=== PATIENT | male | born 1975 | race Caucasian/White ===

== ENCOUNTER 2019-06-06 15:34 | Observation (INO) | payer BC ==
[~2019-06-06] VITALS: Ht 193 cm; Wt 123.5 kg
[~2019-06-06 15:34] MED LIST: ALEVE 220MG220 MG PO
[2019-06-06 15:51] VITALS: BP 141/87; PULSE 63; TEMP 97.9
--- NOTE | 2019-06-06 16:12 | NUR ---
Patient to room via wheelchair by admissions. Rates pain 2-3 in left lower back that is dull and constant. in room.
[2019-06-06 16:50] VITALS: BP 138/72; PULSE 54
--- NOTE | 2019-06-06 16:56 | NUR ---
Patient having burning sensation in right shoulder area since the [employer] HOME HEALTH ATTENDANT and IV fluids initiated. Looked at right shoudler area and veins are more prominent when compared to the left shoulder area. Paused IV fluids and HOME HEALTH ATTENDANT. Asked retail shift supervisor MCKINLEY Calderon, and MCKINLYE Romano, to come in room to evaluate patient as well. Paused HOME HEALTH ATTENDANT and restarted fluids. Patient still feels the burning some in the right shoulder but not as bad as what it was. IV fluids continue to infuse. Patient says that he is not having the burning in that area any longer. Pharmacy also notified.
--- NOTE | 2019-06-06 17:10 | NUR ---
Morphine MAGNET PLACER dc'd at this time. Will add reaction to patient allergy list. MCKINLEY Cervantes, spoke with Dr. Kennedy and new orders received. Patient and his updated. Veins not as prominent in right shoudler area. Patient declines any pain or burning in the right shoulder any longer. Water provided. Patient denies further needs.
[2019-06-06 17:50] LABS: CALCIUM 8.8 mg/dL (8.4-10.2); CREATININE, serum 1.08 (0.66-1.25); POTASSIUM 4.2 mmol/L (3.4-5.0)
--- NOTE | 2019-06-06 18:06 | NUR ---
Evaluated right shoulder. No more redness noted. Veins no longer prominent. Patient says that he is not having any pain or burning in the shoulder any longer. Says that his pain is still tolerable at this time. Denies needs.
[2019-06-06 19:36] VITALS: BP 129/71; PULSE 79; TEMP 98
[2019-06-06 23:37] VITALS: BP 122/60; PULSE 68; TEMP 98.2
[2019-06-07] VITALS (9 sets, daily range): BP systolic 127–169; BP diastolic 59–84; PULSE 51–62; TEMP 97.8–98.2
--- NOTE | 2019-06-07 04:14 | NUR ---
Patient has rested well throughout the night. Has requested pain medication x2 so far this shift. Pain well managed with current regimen. Surgery scheduled for 0800. Patient ambulates to bathroom independently. Urine is strained, no stone present. Will continue to monitor.
--- NOTE | 2019-06-07 07:30 | NUR ---
Patient alert and oriented, answers questions appropriately. See assessment. No c/o flank or back pain. No c/o urinary burning, frequency or hesitancy. To surgery at this time.
--- NOTE | 2019-06-07 09:40 | NUR ---
Patient returns from cysto, assessment unchanged.
--- NOTE | 2019-06-07 13:15 | NUR ---
Discharge instructions reviewed with patient and spouse, verbalized understanding. Discharged ambulatory to auto/home with spouse at 1115.
== END 2019-06-07 13:15 | disposition home or self-care (01) ==
LOC: SURG 15:34
PROVIDERS: ADMIT Urology
DX: N20.2 Calculus of kidney with calculus of ureter (principal); F17.220 Nicotine dependence, chewing tobacco, uncomplicated; Z88.1 Allergy status to other antibiotic agents; Z88.2 Allergy status to sulfonamides; Z80.8 Family history of malignant neoplasm of other organs or systems; Z88.5 Allergy status to narcotic agent
CPT/HCPCS: C1769; C2617; G0378; G0379; J0690; J1170; J1885; J2270; J2405; J2704; J3010; J7030; Q9967

== ENCOUNTER 2023-03-06 12:41 | Day surgery (SDC) | payer BC ==
[~2023-03-06] VITALS: Ht 193 cm; Wt 123.0 kg
[2023-03-06] MEDS ORDERED: PRINIVIL10 MG PO (13:45)
[2023-03-06 13:52] VITALS: BP 135/76; PULSE 68; TEMP 98.1
[2023-03-06] MEDS ORDERED: KETOROLAC30 MG/ML IJ (14:27)
--- NOTE | 2023-03-06 15:35 | NUR ---
REPORT RECEIVED FROM AMBULATORY, PT UP TO ROOM AT THIS TIME. VITALS STABLE, A;O X4, STEADY GAIT, FAMILY AT BEDSIDE, PAIN 2/[address] BARRIOS CALLED TO UPDATE ON PT TORADOL REQUEST, VERBAL ORDERS PROVIDED.
[2023-03-06 15:54] VITALS: BP 118/72; PULSE 55; TEMP 97.5
--- NOTE | 2023-03-06 16:19 | NUR ---
1520 REPORT TO HANNAH Granger RN. PT TRANSPORTED TO RM 342 VIA WHEEL CHAIR, ACCOMPANIED BY HIS .
[2023-03-06 19:17] VITALS: BP 124/67; PULSE 62; TEMP 97.5
[2023-03-06 20:18] VITALS: BP_SYST 124
--- NOTE | 2023-03-06 22:35 | NUR ---
patient lying in bed, alert and oriented x4. pt denies chest pain, shortness of breath and additional pain at this time. IV in LH is patent and site is clean dry and intact. patient aware of NPO status at midnight and verbally understood. no remarkable skin findings noted. pt has no further needs, questions, or concerns at this time. call light within reach, will continue to monitor.
[2023-03-06 23:02] VITALS: BP 123/75; PULSE 58; TEMP 97.5
[2023-03-06 23:36] VITALS: BP_SYST 123
[2023-03-07] VITALS (14 sets, daily range): BP systolic 113–129; BP diastolic 1–80; PULSE 56–82; TEMP 97.5–98.6
--- NOTE | 2023-03-07 08:00 | NUR ---
Pt. sitting up in bed. Pt. is A&OX3, assessment complete. IVto lt. hand patent, IV fluids infusing per orders. Pt. reports pain at a 0 on pain scale at this time. Pt. requesting to shower. IV disconnected and covered. Pt. provided with shampoo, clean gown and towels. Pt denies further needs, call light within reach.
--- NOTE | 2023-03-07 09:30 | NUR ---
Initial visit; Patient very pleasant and thanked Lead Dental Assistant for stoping and offering God's blessings. Lead Dental Assistant wished him well and offered God's blessing.
--- NOTE | 2023-03-07 14:13 | NUR ---
Bowl Attendant met with patient to discuss discharge planning. Patient lives in [place], [place] with his , Evette (ph#[phone]) and sees Dr. Cosme for primary care. When asked about where he gets medications, patient stated "where ever". Patient denied any issues affording medications when he needs them. Patient does not use any DME and is independent with ADLS. Patient is employed by [employer]. Patient does not have DPOA-HC and is not interested in completing one at this time. Patient plans to return home at time of discharge. Discharge Plan: Home
--- NOTE | 2023-03-07 16:37 | NUR ---
Consent signed for surgery. Pt. to PACU at this time.
[2023-03-07] MEDS ORDERED: PERCOCET 325 MG1 TA2 PO (17:51)
[2023-03-07] MEDS ORDERED: PYRIDIUM 100MG100 MG PO (17:51)
--- NOTE | 2023-03-07 19:16 | NUR ---
PT ARRIVED TO ROOM 342 FROM PACU. VSS & A&O X4. PT AMBULATED TO RESTROOM & VOIDED 200ML REDDISH OUTPUT. C/O PAIN WHEN URINATING - SEE MAR. SITTING UP IN BED EATING DINNER, DENYING ANY N/V. IVF INFUSING TO LEFT HAND. CALL LIGHT IN REACH & DENYING FURTHER NEEDS.
--- NOTE | 2023-03-07 20:00 | NUR ---
VSS. PT AMBUATED TO RESTROOM W/ REDDISH OUTPUT - REPORTS PAIN WITH URINTION IS A LITTLE BETTER. REQUESTING TO DISCHARGE SOON.
--- NOTE | 2023-03-07 20:45 | NUR ---
PT D/C TO HOME WITH & ESCORTED OUT BY STAFF WITH PERSONAL BELONGINGS. DISCHARGED EDUCATION REVIEWED & ALL QUESTIONS ANSWERED. IV TO LEFT HAND D/C BY THIS RN.
== END 2023-03-07 20:40 | disposition home health service (06) ==
LOC: SDCO 12:41 → SURG 12:41 → SDCO 15:21 → SURG 15:29 → SDCO 18:15 → SURG 03-07 20:40 → SDCO 03-07 20:40
DX: N20.1 Calculus of ureter (principal); Z87.891 Personal history of nicotine dependence
CPT/HCPCS: OP; C1769; C2617; G0378; J0690; J1100; J1170; J1885; J2405; J2704; J3010; J7030; Q9967

== ENCOUNTER 2023-06-04 12:21 | Day surgery (SDC) | payer BC ==
[~2023-06-04] VITALS: Ht 193 cm; Wt 122.5 kg
[~2023-06-04 12:21] MED LIST changes: +KETOROLAC30 MG/ML IJ; +LR 1,000 ML IV SCH; +PERCOCET 325 MG1 TA2 PO; +PRINIVIL10 MG PO; +PYRIDIUM 100MG100 MG PO
[2023-06-04] MEDS ORDERED: NS 1,000 ML IV SCH (12:30)
[2023-06-04] MEDS ORDERED: Ketorolac 15 MG/ML VIAL IV PRN (12:30)
[2023-06-04] MEDS ORDERED: Morphine 4 MG/ML VIAL IV SCH (12:30)
[2023-06-04] MEDS ORDERED: Ondansetron 4 MG/2 ML VIAL IV PRN ×3 (12:30→17:45)
[2023-06-04] MEDS ORDERED: Morphine 4 MG/ML VIAL IV PRN (12:30)
[2023-06-04] MEDS ORDERED: HCTZ12.5TAB (12:50)
[2023-06-04] MEDS ORDERED: TORADOL 10MG TA10 MG PO (12:51)
[2023-06-04 15:13] VITALS: BP 143/83; PULSE 71; TEMP 98.2
--- NOTE | 2023-06-04 15:17 | NUR ---
[address] MERIDA OFFICE FOR PROCEDURE SCHEDULED FOR 1630 TODAY. PT IS IN OBVIOUS DISTRESS FROM PAIN. REPORTING LEFT FLANK PAIN 6/10. SX BEGAN LAST EVENING. PT HAS A HX OF L[facility]ORIPSY [facility]. PT AMBULATORY TO BAY 1 WITH A STEADY GAIT, BREATHING EVEN AND UNLABORED. CONSENTS REVIEWED AND SIGNED BY PT. IV ESTABLISHED. NS INFUSING VIA DIAL A FLOW AT 125 ML/HR. CALL LIGHT IN REACH. WARM BLANKET PROVIDED. PT MEDICATED FOR PAIN.
[2023-06-04] MEDS ORDERED: fentaNYL 50 MCG/ML 2 ML VIAL IV ONE (16:15)
[2023-06-04 16:24] VITALS: BP 136/81; PULSE 61; TEMP 97.2
[2023-06-04] MEDS ORDERED: fentaNYL 50 MCG/ML 2 ML VIAL ONE ×2 (16:34→17:26)
[2023-06-04] MEDS ORDERED: Lidocaine PF 2% (20 MG/ML) 5 ML VIAL ONE (16:34)
[2023-06-04] MEDS ORDERED: Ondansetron 4 MG/2 ML VIAL ONE (16:44)
[2023-06-04] MEDS ORDERED: dexAMETHasone 10 MG/ML VIAL ONE (16:44)
[2023-06-04] MEDS ORDERED: Iohexol 350 - 100 ML VIAL URETER -L ONE (16:52)
[2023-06-04] MEDS ORDERED: HYDROmorphone 2 MG/1 ML VIAL IV PRN (17:00)
[2023-06-04] MEDS ORDERED: droPERidol 2.5 MG/ML 2 ML VIAL IV PRN (17:00)
[2023-06-04] MEDS ORDERED: Meperidine 50 MG/ML 1 ML VIAL IV PRN (17:00)
[2023-06-04] MEDS ORDERED: fentaNYL 50 MCG/ML 2 ML VIAL IV PRN (17:00)
[2023-06-04] MEDS ORDERED: Lidocaine 2% (20 MG/ML) 20 ML UROJET UR ONE (17:10)
[2023-06-04] MEDS ORDERED: Ketorolac 30 MG/ML VIAL ONE (17:26)
[2023-06-04] MEDS ORDERED: LR 1,000 ML IV ONE (17:27)
[2023-06-04] MEDS ORDERED: Acetaminophen 325 MG TAB PO PRN (17:45)
[2023-06-04] MEDS ORDERED: Hyoscyamine 0.125 MG Sublingual TAB SL PRN (17:45)
[2023-06-04] MEDS ORDERED: Naloxone 0.4 MG/ML VIAL IV PRN (17:45)
[2023-06-04] MEDS ORDERED: NORCO 325 MG-51 TAB PO (17:47)
--- NOTE | 2023-06-04 18:38 | NUR ---
PATIENT ARRIVED TO FLOOR AT 1818 FROM PACU. VSS. PATIENT AMBULATED TO BATHROOM WELL AND COMPLIANED OF SOME PAIN WHEN URINATING. ADVISED PATIENT NURSE WILL CONTACT PROVIDER FOR AN ORDER FOR PAIN RELIEF. PATIENT BACK IN BED RESTING DRINK WATER AND EATING JELLO WITH NO COMPLICATIONS. PATIENT HAS NO OTHER REQUEST OR COMPLAINTS AT THIS TIME. CALL LIGHT IN REACH
[2023-06-04] MEDS ORDERED: Acetaminophen 500 MG TAB PO SCH (18:45)
--- NOTE | 2023-06-04 19:45 | NUR ---
PT A&O X4 LAYING IN BED. VSS ON ROOM AIR. PT STATES HIS PAIN IS 2/10 BUT DOES HAVE SOME CRAMPS WHEN UP TO THE BATHROOM, GIVEN PRN LEVSIN & SCHEDULED TYLENOL. PT HAS BEEN UP AMBULATING, GONE TO THE RESTROOM, & IS TOLERATING ORAL INTAKE. PT REQUESTING TO BE DISCHARGED, DENYING OTHER NEEDS.
[2023-06-04 19:50] VITALS: BP 157/90; PULSE 65; TEMP 97.7
[2023-06-04 20:05] VITALS: BP 141/91; PULSE 73
[2023-06-04 20:35] VITALS: BP 142/93; PULSE 73
--- NOTE | 2023-06-04 20:45 | NUR ---
PT D/C TO HOME WITH FAMILY & ASSISTED OUT OF THE BUILDING VIA W/C BY STAFF. PT DENYING ANY PAIN. EDUCATED PT ON PAIN MEDICATIONS SENT TO PHARMACY & PT DENIES THE NEED FOR THEM OR A TAKE HOME PACK HE IS NOT HAVING ANY PAIN. DISCHARGE EDUCATION REVIEWED & QUESTIONS ANSWERED. IV D/C BY THIS RN. PT DENYING FURTHER NEEDS OR QUESTIONS & ESCORTED OUT BY STAFF.
== END 2023-06-04 22:45 | disposition home or self-care (01) ==
LOC: SDCO 12:21
DX: N20.2 Calculus of kidney with calculus of ureter (principal); I10 Essential (primary) hypertension; F17.290 Nicotine dependence, other tobacco product, uncomplicated; F17.220 Nicotine dependence, chewing tobacco, uncomplicated; Z79.899 Other long term (current) drug therapy
CPT/HCPCS: C1769; C2617; J0690; J1100; J1885; J2405; J2704; J3010; J7030; J7120; Q9967